=== PATIENT | female | born 1930 | race Caucasian/White ===

== ENCOUNTER 2017-08-10 07:19 | Emergency (ER) | payer OTHER ==
[~2017-08-10] VITALS: Ht 165.1 cm; Wt 72.6 kg
--- NOTE | 2017-08-10 07:25 | NUR ---
BIB [facility] C/O FOR ALTERED MENTAL STATUS, BS "LOW" [employer]. D10, 250ML GIVEN IV ON ROUTE. PATIENT ARRIVED A/OX 4 NOW. REPEAT BS 175. BREATHING EVEN AND UNLABORED, NO SOB, NAD. VITALS STABLE. SAFETY AND COMFORT MEASURES IN PLACE. IV INTACT AND PATENT ON R HAND, 20 G. AWAITING MD ORDERS
[2017-08-10] MEDS: IV NS 0.9% 500 ML BAG IV ONE (07:40)
[2017-08-10 07:41] LABS: EOSINOPHILS # (AUTO) 0.1 /CMM (0.0-0.7); EOSINOPHILS % (AUTO) 1.1 % (0.0-6.0); HEMATOCRIT 36 % (33-45); LYMPHOCYTES % (AUTO) 13.5 % (20.0-44.0); MEAN CORPUSCULAR HEMOGLOBIN 30 PG (26.0-33.0); MEAN CORPUSCULAR HGB CONC 33 g/dl (31.0-36.0); MEAN CORPUSCULAR VOLUME 91 fL (82-100); MONOCYTES # (AUTO) 0.2 /CMM (0.1-1.30); MONOCYTES % (AUTO) 3.3 % (2.0-12.0); NEUTROPHILS # (AUTO) 6.1 /CMM (1.8-8.9); NEUTROPHILS % (AUTO) 82.1 % (43.0-81.0); PLATELET COUNT (AUTO) 137 /CMM (150-450); RDW COEFFICIENT OF VARIATION 15.6 (11.5-15.0); RED BLOOD CELL COUNT(AUTO) 3.97 MIL/uL (4.0-5.2); WHITE BLOOD COUNT (AUTO) 7.4 K/uL (4.3-11.0)
[2017-08-10 07:51] LABS: CALCIUM, SERUM 9.1 mg/dL (8.5-10.1); CARBON DIOXIDE 32 mmol/L (21-32); CHLORIDE 93 mmol/L (98-107); CREATININE 0.6 mg/dL (0.6-1.3); GLUCOSE 189 mg/dL (74-106); POTASSIUM 4.7 mmol/L (3.5-5.1); SODIUM SERUM 129 mmol/L (136-145); UREA NITROGEN, BLOOD 52 mg/dL (7-18)
[2017-08-10 07:53] LABS: INR 0.97 (0.87-1.13)
[2017-08-10 07:56] LABS: ALANINE AMINOTRANSFERASE 47 U/L (12-78); ALBUMIN 2.7 g/dL (3.4-5.0); ALKALINE PHOSPHATASE 105 U/L (46-116); ASPARTATE AMINOTRANSFERASE 42 U/L (15-37); BILIRUBIN,DIRECT 0.2 mg/dL (0.0-0.2); BILIRUBIN,TOTAL 0.5 mg/dL (0.2-1.0); TOTAL PROTEIN, SERUM 6.2 g/dL (6.4-8.2)
[2017-08-10 07:59] LABS: TROPONIN I < 0.017 ng/mL (0.00-0.056)
[2017-08-10] MEDS: IV D5/ 0.9% NACL 1,000 ML IV ONE (08:11)
--- NOTE | 2017-08-10 08:13 | NUR ---
URINE OBTAINED VIA STRAIGHT CATH PER MD ORDERS AND SENT TO LAB. 600 ML OUT, PATSY, CLEAR. MD INFORMED, NO NEW ORDERS AT THIS TIME.
[2017-08-10 08:27] LABS: APPEARANCE,URINE CLEAR (CLEAR); BILIRUBIN,URINE NEGATIVE (NEGATIVE); BLOOD, URINE NEGATIVE Ery/uL (NEGATIVE); COLOR,URINE YELLOW (YELLOW); KETONES,URINE NEGATIVE (NEGATIVE); LEUKOCYTE ESTERASE ,URINE NEGATIVE (NEGATIVE); NITRITE, URINE NEGATIVE (NEGATIVE); PROTEIN,URINE TRACE mg/dl (NEGATIVE); UGLUCOSE NEGATIVE (NEGATIVE); UROBILINOGEN,URINE 0.2 EU/dL (0.2)
[2017-08-10 08:32] LABS: BACTERIA,URINE Rare /HPF (None Seen); RBC,URINE 0-2 /HPF (0-2); SQUAMOUS EPITHELIAL CELL,UR Rare /HPF (None Seen); WBC,URINE 0-2 /HPF (0-3)
--- NOTE | 2017-08-10 08:44 | NUR ---
REPORT GIVEN TO JESSICA DIAZ FOR LIZ. PATIENT GOING TO 114-1
--- NOTE | 2017-08-10 09:24 | NUR ---
ANA M MILLS CALLED AND SPOKE WITH ABIOLA DIAZ
--- NOTE | 2017-08-10 10:46 | NUR ---
[facility] REPORT : [phone] MD: DR. GUZMAN 1 HR ETA
--- NOTE | 2017-08-10 10:57 | NUR ---
REPORT GIVEN TO SEAN DIAZ FOR LIZ UPON TRANSFER.
[2017-08-10 12:00] VITALS: BP 100/61
--- NOTE | 2017-08-10 12:05 | NUR ---
REPORT GIVEN TO LUIS WILSON FOR TRANSFER TO [facility]. PATIENT REMAINS STABLE, TRANSFER INSTURCTIONS PROVIDED. PATIENT LEFT VIA AMBULANCE.
== END 2017-08-10 12:04 | disposition short-term general hospital (02) ==
LOC: ER 07:21 → UNDOADMIN 08:48 → TELE1 08:48 → UNDODISIN 14:28
DX: R41.82 Altered mental status, unspecified (principal); E11.649 Type 2 diabetes mellitus with hypoglycemia without coma; R79.1 Abnormal coagulation profile; I48.91 Unspecified atrial fibrillation; I10 Essential (primary) hypertension; Z88.0 Allergy status to penicillin; Z88.1 Allergy status to other antibiotic agents; Z88.2 Allergy status to sulfonamides; Z88.8 Allergy status to other drugs, medicaments and biological substances; Z95.0 Presence of cardiac pacemaker; Z86.73 Personal history of transient ischemic attack (TIA), and cerebral infarction without residual deficits
CPT/HCPCS: 36415; 71045-TC; 80048-TC; 80076-TC; 81000-TC; 82962-TC; 84484-TC; 85025-TC; 85730-TC; A4606; J7040; J7042; Z7610